=== PATIENT | male | born 1990 | race Asian ===

== ENCOUNTER 2016-07-27 22:47 | Emergency (ER) | payer OTHER ==
--- NOTE | 2016-07-28 01:12 | ED ---
Venancio Brothers Matthew, scribed for Yasir Elkins MD on 07/28/16 at 0111 . Head Injury - HPI Summary HPI Summary: A 25 y/o male presents to the ED after he was hit in the head with an elbow while playing basketball at 22:00 yesterday. The patient denies LOC. Associated symptoms include superficial abrasion to the forehead. - History Of Current Complaint Chief Complaint: EDHeadInjury Stated Complaint: HEAD INJURY Time Seen by Provider: 07/28/16 00:57 Hx Obtained From: Patient Mechanism Of Injury: Direct Blow - to the head with an elbow Onset/Duration: Started Hours Ago, Traumatic, Still Present Onset of Pain: Immediate Severity Currently: Mild Severity Initially: Mild Pain Intensity: 2 Pain Scale Used: 0-10 Numeric Location of Head Injury: Frontal Associated Signs And Symptoms: Other: - superficial abrasion to the frontal scalp - Allergies/Home Medications Allergies/Adverse Reactions: Allergies Allergy/AdvReac Type Severity Reaction Status Date / Time No Known Allergies Allergy Verified 07/27/16 22:51 PMH/Surg Hx/FS Hx/Imm Hx Previously Healthy: Yes Endocrine/Hematology History: Denies: Hx Diabetes Infectious Disease History: No Infectious Disease History: Denies: Traveled Outside the [place] in Last 30 Days - Family History Known Family History: Positive: Diabetes - Father Negative: Cardiac Disease, Hypertension - Social History Occupation: Student Alcohol Use: None Hx Substance Use: No Substance Use Type: Reports: None Hx Tobacco Use: No Smoking Status (MU): Never Smoked Tobacco Review of Systems Constitutional: Negative Eyes: Negative ENT: Negative Cardiovascular: Negative Respiratory: Negative Gastrointestinal: Negative Genitourinary: Negative Musculoskeletal: Negative Skin: Other - superficial abrasion on the frontal scalp Neurological: Negative Psychological: Normal All Other Systems Reviewed And Are Negative: Yes Physical Exam Triage Information Reviewed: Yes Vital Signs On Initial Exam: Initial Vitals Temp Pulse Resp BP Pulse Ox 98.3 F 96 18 131/78 99 07/27/16 22:48 07/27/16 22:48 07/27/16 22:48 07/27/16 22:48 07/27/16 22:48 Vital Signs Reviewed: Yes Appearance: Positive: Well-Appearing, No Pain Distress Skin: Positive: Warm Head/Face: Positive: Normal Head/Face Inspection Eyes: Positive: EOMI, OLINDA ENT: Positive: Hearing grossly normal Neck: Positive: Supple Respiratory/Lung Sounds: Positive: Clear to Auscultation, Breath Sounds Present Cardiovascular: Positive: RRR Abdomen Description: Positive: Nontender, Soft Musculoskeletal: Positive: Strength/ROM Intact Neurological: Positive: Sensory/Motor Intact, Alert, Oriented to Person Place, Time, Normal Gait Psychiatric: Positive: Affect/Mood Appropriate Diagnostics - Vital Signs Vital Signs Temp Pulse Resp BP Pulse Ox 07/28/16 00:49 98.4 F 78 16 151/88 100 07/27/16 22:48 98.3 F 96 18 131/78 99 - Laboratory Lab Statement: Any lab studies that have been ordered have been reviewed, and results considered in the medical decision making process. Head Injury Course/Dx Assessment/Plan: A 25 y/o male presents to the ED after he was hit in the head with an elbow while playing basketball at 22:00 yesterday. The patient denies LOC. Associated symptoms include superficial abrasion to the forehead. He was instructed to take Tylenol or Advil for pain and [facility]. - Diagnoses Provider Diagnoses: Head injury Discharge - Discharge Plan Condition: Stable Disposition: HOME Patient Education Materials: Head Injury (ED) [facility]errals: [facility] [Provider Group] Additional Instructions: [facility] with [facility] 2 days. You may take Tylenol or Advil as directed on the medications for pain. The documentation as recorded by the Venancio mccann Matthew accurately reflects the service I personally performed and the decisions made by me, Yasir Elkins MD.
[2016-07-28 01:14] VITALS: BP 142/90
== END 2016-07-28 01:12 | disposition home or self-care (01) ==
LOC: ED 22:47
DX: S09.90XA Unspecified injury of head, initial encounter (principal); S00.01XA Abrasion of scalp, initial encounter; X58.XXXA Exposure to other specified factors, initial encounter; Y93.67 Activity, basketball; Y92.9 Unspecified place or not applicable; Y99.9 Unspecified external cause status
CPT/HCPCS: 99282